=== PATIENT | male | born 1955 | race Caucasian/White ===

== ENCOUNTER 2019-05-05 08:30 | Emergency (ER) | payer OTHER ==
[2019-05-05] MEDS ORDERED: ORPHENADRINE 60MG/2ML INJ IM ONE (08:45)
[2019-05-05] MEDS ORDERED: KETOROLAC 60 MG/2 ML VIAL IM ONE (08:45)
--- NOTE | 2019-05-05 08:51 | ER Report ---
History and Physical Time Seen By MD: 08:46 Hx. of Stated Complaint: PATIENT REPORTS R LEG PAIN AND NUMBNESS THAT FEELS LIKE SCIATICA. HAD A SIMILAR EPISODE 10 YEARS AGO HPI/ROS CHIEF COMPLAINT: Right-sided back and leg pain HISTORY OF PRESENT ILLNESS: Patient is a 63-year-old male who states that he b elieves he exacerbated his sciatica again. He states that approximately week ago he turned to get out of bed felt severe pain to the right lower back that radiated down the posterior aspect of the right thigh and has numbness from the knee down into the toes. 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 He denies any fevers or chills. He denies any saddle anesthesia or retention or incontinence of urine or stool. Patient states he does follow with a primary care provider but has not seen one in the last 9 years. He denies taking any prescription medications. REVIEW OF SYSTEMS: Respiratory: No cough, no dyspnea. Cardiovascular: No chest pain, no palpitations. Gastrointestinal: No vomiting, no abdominal pain. Musculoskeletal: Right lower back pain Allergies: Coded Allergies: No Known Drug Allergies (Unverified , 05/05/19) Home Meds Active Scripts Prednisone (PREDNISONE) 20 Mg Tablet, 40 MG PO QDAY for 5 Days, #10 TAB 0 Refills Prov:ROMARIO SIMMS MD 05/05/19 Methocarbamol (ROBAXIN-750) 750 Mg Tablet, 1500 MG PO QID for Muscle Relaxant, #40 TAB 0 Refills Prov:ROMARIO SIMMS MD 05/05/19 Hydrocodone Bit/Acetaminophen (HYDROCODON-ACETAMINOPHEN 5-325) 1 Each Tablet, 1 EACH PO Q4H PRN for PAIN, #20 TAB 0 Refills Prov:ROMARIO SIMMS MD 05/05/19 Past Medical/Surgical History History of back pain and sciatica Hx Substance Use Disorder: No Hx Alcohol Use: No Constitutional Vital Sign - Last 24 Hours 05/05/19 05/05/19 08:34 10:31 Temp 97.9 Pulse 89 82 Resp 16 16 B/P (MAP) 148/92 (110) Pulse Ox 93 92 O2 Delivery Room Air Room Air Physical Exam General appearance: alert no distress. Back: Thoracic spine has no spinal or paraspinal tenderness to palpation. Lumbar spine has no spinal tenderness moderateparaspinal tenderness Gastroinal: Abdomen is soft, non tender, no masses.. Skin: No lesions and no rashes. Vascular: Normal capillary refill and pulses to feet. Neurological: Motor function: leg strength normal and symmetric for both legs Sensory function: normal for all leg dermatomes. Straight leg raise negative to 70 degrees. Reflexes normal bilaterally on legs. [ ] DIFFERENTIAL DIAGNOSIS: After history and physical exam differential diagnosis was considered for back pain including muscular strain, herniated disc, intra- abdominal and renal causes. Medical Decision Making ED Course/Re-evaluation ED Course 05/05/2019 8:48:57 am symptoms seem like exacerbation of sciatica. Plan at this time will be IM Toradol as well as IM Norflex obtain CT of the L-spine. We'll also consider short course of oral steroids to reduce inflammation. Decision to Disposition Date: May 05, 2019 Decision to Disposition Time: 10:16 Depart Departure Latest Vital Signs Vital Signs Date Time Temp Pulse Resp B/P (MAP) Pulse Ox O2 Delivery O2 Flow Rate FiO2 05/05/19 10:31 82 16 148/92 (110) 92 Room Air 05/05/19 08:34 97.9 Impression: Primary Impression: Sciatica Condition: Improved Disposition: HOME OR SELF-CARE New Scripts Prednisone (PREDNISONE) 20 Mg Tablet 40 MG PO QDAY for 5 Days, #10 TAB 0 Refills Prov: ROMARIO SIMMS MD 05/05/19 Methocarbamol (ROBAXIN-750) 750 Mg Tablet 1500 MG PO QID for Muscle Relaxant, #40 TAB 0 Refills Prov: ROMARIO SIMMS MD 05/05/19 Hydrocodone Bit/Acetaminophen (HYDROCODON-ACETAMINOPHEN 5-325) 1 Each Tablet 1 EACH PO Q4H PRN for PAIN, #20 TAB 0 Refills Prov: ROMARIO SIMMS MD 05/05/19 Departure Forms: ER Transition Record, Medications Reconciliation, Off Work/School Form, School or Work Release?: Work Number of days to be released: 3 Patient Portal Information Patient Instructions: Acute Low Back Pain (ED), Lower Back Exercises (GEN) Additional Instructions: Return to the emergency department in 72 hours. If your symptoms have not improved significantly he should check into the emergency department at that time. If your symptoms have completely improved and ready go back to work please speak with the digital x ray service engineer to have the emergency doctor who is currently on P able to review your chart and if you are well we should be able to sign a return to work slip at that time without you having to check in. Problem Qualifiers Primary Impression: Sciatica Laterality: right Qualified Codes: M54.31 - Sciatica, right side ROMARIO SIMMS MD May 05, 2019 08:51
--- NOTE | 2019-05-05 10:07 | RADIOLOGY IMAGING REPORT ---
FAC[place]: [facility] [place] NAME: Jania Taveras : 1955 MR: [id number] V: [id number] EXAM DATE: ORDERING PHYSICIAN: ROMARIO SIMMS TECHNOLOGIST: Location: [facility] - [place] Patient: Jania Taveras : 1955 Visit/Account:[id number] Date of Sevice: 05/05/2019 CT lumbar spine Indication: Pain/sciatica. Comparison: None available. Technique: Axial CT imaging of the lumbar spine was performed. 2-D sagittal and coronal CT reformats were also obtained. One of the following dose optimization techniques was utilized in the performance of this exam: Autom ated exposure control; adjustment of the mA and/or kV according to the patient's size; or use of an i terative reconstruction technique. Specific details can be referenced in the facility's radiology CT exam operational policy. Findings: No acute osseous or acute alignment abnormality identified.. The vertebral body heights are well-maintained. Minimal degenerative disc disease at L4-L5. Calcified granuloma within the right lung base. Bilateral renal cysts measuring up to 2.4 cm on the r ight and 4.2 cm on the left mild atherosclerosis within the abdominal aorta. Mild/moderate diverticul osis within the distal colon without evidence for diverticulitis. Subcentimeter hypodensities within the right hepatic lobe which are too small to characterize however statistically represents simple cy st. No nephrolithiasis or hydronephrosis. Impression: 1. No acute osseous or acute alignment abnormality of the lumbar spine. Report Dictated By: Curtis Santillan MD at 05/05/2019 9:58 AM Report E-Signed By: Curtis Santillan MD at 05/05/2019 10:01 AM WSN:[id number]
[2019-05-05] MEDS ORDERED: PRED20TA6 PO (10:16)
[2019-05-05] MEDS ORDERED: LOR5/325 PO (10:16)
[2019-05-05] MEDS ORDERED: METH-543 PO (10:16)
[2019-05-05 10:31] VITALS: BP 148/92
== END 2019-05-05 10:32 | disposition home or self-care (01) ==
LOC: ER 08:34
DX: M54.31 Sciatica, right side (principal); Z79.899 Other long term (current) drug therapy
CPT/HCPCS: 72131; 96372; 99284; J1885; J2360